=== PATIENT | male | born 2000 | race Caucasian/White ===

== ENCOUNTER 2018-03-18 11:36 | Emergency (ER) | payer BC, MEDICAID, OTHER ==
[~2018-03-18] VITALS: Ht 188 cm; Wt 63.5 kg
[2018-03-18] MEDS ORDERED: PROPARACAINE OPHTH 0.5%, 15ML ONE (12:07)
[2018-03-18 13:11] VITALS: BP 110/70
== END 2018-03-18 13:13 | disposition home or self-care (01) ==
LOC: ED 13:07
DX: H10.022 Other mucopurulent conjunctivitis, left eye (principal); L03.213 Periorbital cellulitis; B96.89 Other specified bacterial agents as the cause of diseases classified elsewhere
CPT/HCPCS: 99283

== ENCOUNTER 2020-08-08 23:40 | Emergency (ER) | payer MEDICAID ==
[~2020-08-08] VITALS: Ht 190.5 cm; Wt 61.1 kg
[2020-08-09] MEDS ORDERED: ONDANSETRON 2MG/ML, 2ML ONE (00:18)
[2020-08-09] MEDS ORDERED: SODIUM CHLORIDE 0.9% 1,000ML IVBOLUS ONE (00:30)
[2020-08-09] MEDS ORDERED: ONDANSETRON 2MG/ML, 2ML IVPush ONE (00:30)
[2020-08-09 00:35] LABS: BASOPHILS % (AUTO) 0 % (0-1); EOSINOPHILS % (AUTO) 1 % (1-7); LYMPHOCYTES % (AUTO) 19 % (22-44); MEAN CORPUSCULAR HGB CONC 36.4 g/dL (33.2-36.2); MEAN PLATELET VOLUME 7.9 fL (7.4-10.4); MONOCYTES % (AUTO) 12 % (2-9); NEUTROPHILS % (AUTO) 68 % (42-75); PLATELET COUNT 281 x10^3/uL (130-400); RED BLOOD COUNT 5.81 x10^6/uL (4.38-5.82); RED CELL DISTRIBUTION WIDTH 13.3 % (9.4-14.8)
[2020-08-09 00:37] LABS: MD NO
[2020-08-09 00:46] LABS: CHLORIDE 106 mmol/L (98-107)
[2020-08-09 00:47] LABS: ALANINE AMINOTRANSFERASE 19 U/L (12-78); ALBUMIN 3.8 g/dL (3.4-5.0); ANION GAP 7 mmol/L (5-15); CALCIUM 8.9 mg/dL (8.5-10.1); CREATININE 0.91 mg/dL (0.7-1.3)
[2020-08-09 00:49] LABS: ALKALINE PHOSPHATASE 56 U/L (45-117); BILIRUBIN,TOTAL 1.1 mg/dL (0.2-1.0); TOTAL PROTEIN 6.9 g/dL (6.4-8.2)
--- NOTE | 2020-08-09 01:13 | NUR ---
PATIENT STATES INCREASED COMFORT AFTER ZOFRAN ADMINISTRATION.
[2020-08-09 01:41] VITALS: BP 110/72
== END 2020-08-09 01:44 | disposition home or self-care (01) ==
LOC: ED 08-09 00:10
DX: R11.2 Nausea with vomiting, unspecified (principal); R10.13 Epigastric pain; F12.10 Cannabis abuse, uncomplicated; F41.9 Anxiety disorder, unspecified
CPT/HCPCS: 36415; 80053; 83690; 85025; 96361; 96374; 99283; J2405; J7030